=== PATIENT | male | born 1985 | race African-American/Black ===

== ENCOUNTER 2022-01-24 14:07 | Outpatient (CLI) | payer OTHER ==
[~2022-01-24 14:07] MED LIST: Magnevist 469MG/ML 20 ML VIAL ONE
== END 2022-01-24 14:08 | disposition home or self-care (01) ==
LOC: CSHMRI 14:07
PROVIDERS: ATTEND Psychiatry & Neurology Neuromuscular Medicine
DX: G83.24 Monoplegia of upper limb affecting left nondominant side (principal)

== ENCOUNTER 2022-05-07 14:30 | Outpatient (CLI) | payer OTHER | END 2022-05-07 14:31 | disposition home or self-care (01) | LOC: CSHMRI 14:30 | PROVIDERS: ATTEND Orthopaedic Surgery | DX: M54.12 Radiculopathy, cervical region (principal); R29.898 Other symptoms and signs involving the musculoskeletal system; U07.1 COVID-19; S44.22XA Injury of radial nerve at upper arm level, left arm, initial encounter; M48.02 Spinal stenosis, cervical region | CPT/HCPCS: 72141 ==